=== PATIENT | male | born 1990 | race Caucasian/White ===

== ENCOUNTER → 2023-02-26 | Outpatient (CLI) | payer BC ==
--- NOTE | 2023-02-26 16:03 | XR ---
3 view right hand. DATE: 02/26/2023. COMPARISON: None available. CLINICAL HISTORY: Right hand swelling for 2 days. FINDINGS: There is no fracture, subluxation or dislocation. There is diffuse soft tissue swelling seen surrounding the hand which is prominent along the dorsal a spect. There is no subcutaneous air. IMPRESSION: Soft tissue swelling with no acute osseous abnormality.
== END | disposition home or self-care (01) ==
LOC: RADXRYALE 15:45
PROVIDERS: ATTEND Physician Assistant
DX: M79.641 Pain in right hand (principal); M79.89 Other specified soft tissue disorders